=== PATIENT | male | born 1965 | race Caucasian/White ===

== ENCOUNTER 2016-10-02 09:06 | Emergency (ER) | payer OTHER ==
[~2016-10-02] VITALS: Ht 182.9 cm; Wt 100.0 kg
[2016-10-02 09:08] VITALS: BP 153/100; PULSE 94; RESP 20; TEMP 98.1; O2SAT 94
[2016-10-02] MEDS ORDERED: HYDROmorphone HCL PF 1 MG/ML VIAL IVS ONE (09:15)
[2016-10-02] MEDS ORDERED: ONDANSETRON HCL 4 MG/2 ML VIAL IVP ONE (09:15)
[2016-10-02] MEDS ORDERED: SODIUM CHLORIDE 0.9% FLUSH 10 ML FLUSH IVF PRN (09:15)
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
[2016-10-02 09:58] LABS: BASOPHIL # 0.1 TH/MM3 (0-0.2); BASOPHIL % 0.3 % (0.0-2.0); EOSINOPHIL # 0.1 TH/MM3 (0-0.4); EOSINOPHIL % 0.3 % (0.0-4.0); HEMATOCRIT 43.5 % (39.0-51.0); HEMO FLAGS DIFF FINAL; LYMPH % 6.9 % (9.0-44.0); LYMPHOCYTE # 1.1 TH/MM3 (1.0-4.8); MEAN CELL VOLUME 91.1 FL (80.0-100.0); MEAN CORPUSCULAR HEMOGLOBIN 29.9 PG (27.0-34.0); MEAN CORPUSCULAR HGB CONC 32.9 % (32.0-36.0); MONO % 8.4 % (0.0-8.0); NEUT % 84.1 % (16.0-70.0); PLATELET COUNT 207 TH/MM3 (150-450); RED BLOOD COUNT 4.77 MIL/MM3 (4.50-5.90); RED CELL DISTRIBUTION WIDTH 13.7 % (11.6-17.2); WHITE BLOOD COUNT 15.4 TH/MM3 (4.0-11.0)
[2016-10-02 10:04] LABS: ALT (GPT) 155 U/L (12-78)
[2016-10-02 10:06] LABS: ALKALINE PHOSPHATASE 73 U/L (45-117); TOTAL BILIRUBIN ADULT 0.3 MG/DL (0.2-1.0)
[2016-10-02 10:09] LABS: APTT (PATIENT) 22.2 SEC (24.3-30.1); INTERNATIONAL NORMALIZED RATIO 0.9 RATIO; PROTHROMBIN TIME - PATIENT 10.3 SEC (9.8-11.6)
[2016-10-02 10:12] LABS: ANION GAP 10 MEQ/L (5-15); AST (GOT) 193 U/L (15-37); BICARBONATE 21.6 MEQ/L (21.0-32.0); BLOOD UREA NITROGEN 14 MG/DL (7-18); CHLORIDE 109 MEQ/L (98-107); GLOMERULAR FILTRATION RATE 72 ML/MIN (>89); SODIUM (NA) 141 MEQ/L (136-145)
[2016-10-02 10:15] LABS: POTASSIUM 4.1 MEQ/L (3.5-5.1)
--- NOTE | 2016-10-02 10:42 | RADRPT ---
EXAM DATE/TIME: 10/02/2016 09:45 [facility] COMPARISON: No previous studies available for comparison. INDICATIONS : Left side rib pain. MEDICAL HISTORY : None. SURGICAL HISTORY : None. ENCOUNTER: Initial ACUITY: 1 day PAIN SCORE: 10/10 LOCATION: Left chest FINDINGS: The lungs are under aerated but clear.. The cardiomediastinal contours are unremarkable. Osseous st ructures are intact. CONCLUSION: Under aerated but clear. Narayan Boateng MD FACR on October 02, 2016 at 10:39 Board Certified Radiologist. This report was verified electronically.
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
[2016-10-02 10:46] LABS: AMPHETAMINE, URINE NEG (NEG); BARBITURATES, URINE NEG (NEG); COCAINE, URINE NEG (NEG)
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
[2016-10-02] MEDS ORDERED: IOHEXOL 350 MG/ML 10 ML VIAL (for RAD DIAG) IV ONE (11:20)
[2016-10-02 11:25] VITALS: BP 141/82; PULSE 102; RESP 16; O2SAT 96
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
[2016-10-02] MEDS ORDERED: TRAM-388 PO (11:57)
[2016-10-02] MEDS ORDERED: traMADol HCL 50 MG TAB PO ONE (12:15)
[2016-10-02 13:20] VITALS: BP 162/90
--- NOTE | 2016-10-03 11:14 | EKG ---
Date Performed: 10/02/2016 Time Performed: 10:15:01 PTAGE: 51 years EKG: Sinus rhythm NORMAL ECG NO PREVIOUS TRACING DOCTOR: Stefano Kolb Interpretating Date/Time 10/03/2016 11:12:54
== END 2016-10-02 13:15 | disposition home or self-care (01) ==
LOC: NEPC 09:06
DX: S00.83XA Contusion of other part of head, initial encounter (principal); S20.211A Contusion of right front wall of thorax, initial encounter; S09.90XA Unspecified injury of head, initial encounter; F12.90 Cannabis use, unspecified, uncomplicated; X58.XXXA Exposure to other specified factors, initial encounter; Z72.0 Tobacco use
CPT/HCPCS: 12011; 70450; 70486; 71010; 71260; 72125; 72170; 74177; 80053; 80307; 85025; 85610; 85730; 86850; 86900; 86901; 93005; 96374; 96375; 99285; J1170; J2405; Q9967